=== PATIENT | male | born 1965 | race Caucasian/White ===

== ENCOUNTER 2019-02-28 18:29 | Emergency (ER) | payer OTHER, SELFPAY ==
[2019-02-28 18:49] VITALS: BP 142/105; PULSE 79; RESP 18; TEMP 37.2; O2SAT 99; BMI 25.7
--- NOTE | 2019-02-28 18:50 | ED.NEUROSD ---
HPI - Neuro Symptoms/Deficit General Chief Complaint: Neuro Symptoms/Deficit Stated Complaint: TINGLING THROUGHOUT BODY/NAUSEA/DIZZINESS Time Seen by Provider: 02/28/19 18:49 Source: patient Mode of arrival: ambulatory Limitations: no limitations History of Present Illness HPI Narrative: Patient is a 53-year-old male here for evaluation of an episode that he had approximately 6 hours prior to arrival here in the emergency department. He states that he had a sudden onset of tingling on the top of his head. He states that it very shortly moved down both sides of his body to include his tire face. He denies any chest pain or palpitations the time. No change in vision. He stated that he did have an episode of ?dizziness? that he described as an unsteadiness not as a vertigo sensation. He had some nausea but did not pass out. Did not notice any weakness or speaking issues. He was able to ambulate. He states that the entire episode lasted less than an hour and most likely lasted less than 10 minutes. Stated that his symptoms completely resolved. He does have residual paresthesias in his right upper extremity which he states are not new however more ?intense? now than what they have been in the past. Has never had any symptoms like this in the past. He states that 3 days ago he was at the dentist office and he had ?significantly elevated ?blood pressure. He is not currently on any blood pressure medications. [place]. I also evaluated him for stroke and told him that he was not having a stroke. They advised him to come to the emergency department for further evaluation Related Data Home Medications Medication Instructions Recorded Confirmed meloxicam 15 mg PO DAILY 02/28/19 02/28/19 Previous Rx's Medication Instructions Recorded lisinopril 20 mg PO DAILY #30 tab 02/28/19 Allergies Allergy/AdvReac Type Severity Reaction Status Date / Time No Known Drug Allergies Allergy Verified 02/28/19 18:54 Review of Systems Constitutional Denies fever(s) and Denies headache(s) Eyes Denies change in vision and Denies diplopia ENT Ears, Nose, Mouth, and Throat: Denies vertigo, Reports dizziness, Denies facial pain, Denies headache(s), Reports disequilibrium and Denies sore throat Cardiovascular Denies chest pain, Denies edema, Denies palpitations and Denies dyspnea Respiratory Denies dyspnea Gastrointestinal Gastrointestinal: Denies abdominal pain, Reports nausea and Denies vomiting Genitourinary Denies dysuria and Denies flank pain Musculoskeletal Denies myalgias, Denies arthralgias, Denies muscle weakness, Denies numbness and Reports tingling Integumentary/Breasts Denies rash Neurologic Denies vertigo, Reports dizziness, Denies headache(s), Denies numbness, Reports tingling and Reports disequilibrium Endocrine Denies palpitations Hematologic/Lymphatic Denies easy bleeding and Denies easy bruising [facility] Medical History Melanoma (Acute) Neuropathy (Acute) Social History Smoking Status: Never smoker Social History Smoking Status: Never smoker Exam Initial Vital Signs Initial Vital Signs: Vital Signs Temperature 98.9 F 02/28/19 18:49 Pulse Rate 79 02/28/19 18:49 Respiratory Rate 18 02/28/19 18:49 Blood Pressure 142/105 H 02/28/19 18:49 Pulse Oximetry 99 02/28/19 18:49 Const General: cooperative, healthy appearing, well developed, well groomed and No acute distress Orientation: alert, awake and oriented x3 HENMT Head: normal to inspection and normocephalic Nose: external nose normal Face and sinus: normal facial exam Mouth: oral mucosae normal Eyes Pupils: PERRL EOM: EOM intact bilaterally Resp Effort & Inspection: normal respiratory effort Auscultation: clear to auscultation bilaterally Cardio Rate: regular rate Rhythm: regular rhythm Pulses: radial pulses present GI Inspection: non-distended Palpation: soft and No tender Skin Lesions: no lesions Rashes: no rashes Neuro General: alert, awake and oriented x3 Cranial Nerves: CN's II-XI intact bilaterally Cognition: normal cognition Speech: speech normal Motor: muscle tone normal throughout Sensory Exam: no sensory deficits noted Coordination: [id number] test normal Extrem General: normal to inspection and capillary refill normal Psych Appearance: grossly normal and well kempt Scores ABCD2 Age >= 60 years: no Initial BP. Either SBP >= 140 or DBP >= 90.: yes Clinical features of the TIA: other symptoms Duration of symptoms: 10-59 minutes History of diabetes: no ABCD2 Score: 2 GCS [place] coma scale eye opening: Spontaneous [place] coma scale verbal response: Orientated Leland coma scale motor response: Obey commands [place] coma scale total score: 15 NIH Stroke Scale Level of Conciousness: Alert, keenly responsive Ask month/age: Answers both questions correctly. Open/close eyes, close hand: Performs both tasks correctly Best gaze horizontal: Normal Visual kerr: No visual loss Facial palsy: Normal symetrical movement Left arm drift: No drift for full 10 sec Right arm drift: No drift for full 10 sec Left leg drift: No drift for full 10 sec Right leg drift: No drift for full 10 sec Limb ataxia: Absent Sensory on face/arms/legs: Normal, no sensory loss Best language: No aphasia, normal Dysarthria: Normal Extinction or inattention: No abnormality Total NIH Stroke scale score: 0 Course Orders Ordered: ED Orders 02/28/19 19:05 CT head/brain wo con Stat 02/28/19 19:30 Complete Blood Count AUTO DIFF Stat Comprehensive Metabolic Panel Stat Lipase Stat Vital Signs - 8 hr 02/28/19 18:49 02/28/19 19:35 Temperature 98.9 F Pulse Rate 79 68 Respiratory Rate 18 13 Blood Pressure 142/105 H Blood Pressure [Left Arm] 141/86 H Pulse Oximetry 99 100 MDM - Neuro Symptoms/Deficit Lab Data Attestation: I reviewed the patient's lab results. Result diagrams: 02/28/19 19:30 02/28/19 19:30 Lab Results 02/28/19 02/28/19 02/28/19 Range/Units 19:30 19:30 19:30 WBC 5.5 (4.5-11.0) X10^3/uL RBC 5.41 (4.5-5.9) X10^6/uL Hgb 15.7 (13.5-17.5) g/dL Hct 46.2 (41-53) % MCV 85.4 (80-100) fL MCH 29.0 (26-34) PG MCHC 34.0 (30-36) % RDW 12.9 (11.6-14.8) % Plt Count 231 (150-400) X10^3/uL Neut % (Auto) 60.4 (50-75) % Lymph % (Auto) 26.2 (25-40) % Wetzel % (Auto) 10.8 (3-14) % Eos % (Auto) 2.2 (2-4) % Baso % (Auto) 0.4 (0-2) % Neut # (Auto) 3300 (8290-2944) /uL Lymph # (Auto) 1400 (7451-4737) /uL Wetzel # (Auto) 600 (0-900) /uL Eos # (Auto) 100 (0-450) /uL Baso # (Auto) 0 (0-100) /uL Sodium 140 (137-145) mmol/L Potassium 4.2 (3.4-5.1) mmol/L Chloride 102 (98-107) mmol/L Carbon Dioxide 27 (22-32) mmol/L BUN 15 (9-20) mg/dL Creatinine 1.00 (0.66-1.25) mg/dL Estimated GFR > 60.0 (>60) mL/min BUN/Creatinine Ratio 15.0 (6-22) Glucose 98 (70-100) mg/dL Calcium 9.7 (8.4-10.2) mg/dL Total Bilirubin 0.9 (0.2-1.3) mg/dL AST 50 (17-59) IU/L ALT 53 (21-72) IU/L Alkaline Phosphatase 115 (38-126) U/L Total Protein 8.2 (6.3-8.2) g/dL Albumin 4.8 (3.5-5.0) g/dL Globulin 3.4 (1.7-4.1) g/dL Albumin/Globulin Ratio 1.4 (1.0-2.8) Lipase 56 (23-300) U/L Imaging Data CT scan - head: Radiologist's impression: [address] [address] [address] Scan Report Signed Patient: Nick Monk TMR#: [id number] : 1965Acct:[id number] Age/Sex: 53 / MDate of Service: 02/28/19 Loc: ED Accession Number: [id number] Procedure: CT head/brain wo con Ordering Provider: Chase Abdi D.O. PROCEDURE: CT HEAD/BRAIN WO CON INDICATIONS: Right-sided facial tingling TECHNIQUE: Noncontrast 4.5 mm thick angled axial sections acquired from the foramen magnum to the vertex, with coronal and sagittal reformats. For radiation dose reduction, the following was used: automated exposure control, adjustment of mA and/or kV according to patient size. COMPARISON: None. FINDINGS: Image quality: Excellent. CSF spaces: Basal cisterns are patent. No extra-axial fluid collections. Ventricles are normal in size and shape. Brain: No intracranial hemorrhage, mass, or mass effect. Perez-white matter interface is preserved. Skull and face: Calvarium and visualized facial bones are intact, without suspicious lesions. Sinuses: Visualized sinuses and mastoids are clear. IMPRESSION: 1. No acute intracranial abnormality. Dictated by: De Gan M.D. on 02/28/2019 at 19:59 Approved by: De Gan M.D. on 02/28/2019 at 20:00 ECG Data Attestation: I personally reviewed and interpreted this ECG as follows: Prior ECG tracings: not available for review Interpretation: Sinus rhythm Normal axis Normal QRS Normal QTC Q-waves lead [address] T wave changes Twelve lead EKG performed by the EMS unchanged from EKG here in the ER MDM Narrative Medical decision making narrative: Head CT was negative, labs unremarkable. NIH score 0. Low suspicion for CVA. Also have low suspicion for TIA given his symptoms. I suspect paresthesias. We had a long discussion regarding his blood pressure. Will send home with a prescription for lisinopril and he was instructed to take his blood pressure at home over the next week and if his blood pressures are greater than 140/90 start taking this medication and call his primary doctor. He was given strict return precautions. He expressed understanding and agreement with plan. Discharge Plan Departure Patient Disposition: Home Clinical Impression: Paresthesias Hypertension Qualifiers: Hypertension type: unspecified Qualified Code(s): I10 - Essential (primary) hypertension Instructions: Essential Hypertension Activity Restrictions/Additional Instructions: Recommend that you contact your primary care doctor for follow-up. Take your blood pressure at home over the next week like we discussed. If your blood pressure is greater than 140/90 the majority of the time start taking the medication as directed. Return to the emergency department for any new or worsening symptoms Prescriptions: New lisinopril 20 mg tablet 20 mg PO DAILY Qty: 30 RF: 0 No Action meloxicam 15 mg Tablet 15 mg PO DAILY RF: 0 Referrals: Js Abdi MD [Primary Care Provider] -
--- NOTE | 2019-02-28 19:05 | DI.CT.S_ITS ---
PROCEDURE: CT HEAD/BRAIN WO CON INDICATIONS: Right-sided facial tingling TECHNIQUE: Noncontrast 4.5 mm thick angled axial sections acquired from the foramen magnum to the vertex, with coronal and sagittal reformats. For radiation dose reduction, the following was used: automated exposure control, adjustment of mA and/or kV according to patient size. COMPARISON: None. FINDINGS: Image quality: Excellent. CSF spaces: Basal cisterns are patent. No extra-axial fluid collections. Ventricles are normal in size and shape. Brain: No intracranial hemorrhage, mass, or mass effect. Perez-white matter interface is preserved. Skull and face: Calvarium and visualized facial bones are intact, without suspicious lesions. Sinuses: Visualized sinuses and mastoids are clear. IMPRESSION: 1. No acute intracranial abnormality. Dictated by: De Gan M.D. on 02/28/2019 at 19:59 Approved by: De Gan M.D. on 02/28/2019 at 20:00
[2019-02-28 19:35] VITALS: BP 141/86; PULSE 68; RESP 13; O2SAT 100
[2019-02-28 19:53] LABS: Add Manual Diff / Slide Review NO; Basophils Absolute Auto 0 /uL (0-100); Basophils Percent Auto 0.4 % (0-2); Eosinophils Absolute Auto 100 /uL (0-450); Eosinophils Percent Auto 2.2 % (2-4); Hematocrit 46.2 % (41-53); Hemoglobin 15.7 g/dL (13.5-17.5); Lymphocytes Absolute Auto 1400 /uL (1100-4500); Lymphocytes Percent Auto 26.2 % (25-40); Mean Corpuscular Volume 85.4 fL (80-100); Monocytes Absolute Auto 600 /uL (0-900); Monocytes Percent Auto 10.8 % (3-14); Neutrophils Absolute Auto 3300 /uL (1500-7000); Neutrophils Percent Auto 60.4 % (50-75); Platelet Count 231 X10^3/uL (150-400); Red Blood Cell Count 5.41 X10^6/uL (4.5-5.9); Red Cell Distribution Width 12.9 % (11.6-14.8); White Blood Cell Count 5.5 X10^3/uL (4.5-11.0)
[2019-02-28 20:04] LABS: Alanine Aminotransferase 53 IU/L (21-72); Albumin 4.8 g/dL (3.5-5.0); Albumin Globulin Ratio 1.4 (1.0-2.8); Alkaline Phosphatase 115 U/L (38-126); Aspartate Aminotransferase 50 IU/L (17-59); Bilirubin Total 0.9 mg/dL (0.2-1.3); Blood Urea Nitrogen 15 mg/dL (9-20); Calcium 9.7 mg/dL (8.4-10.2); Carbon Dioxide 27 mmol/L (22-32); Chloride 102 mmol/L (98-107); Estimated Glomerular Filt Rate > 60.0 mL/min (>60); Globulin 3.4 g/dL (1.7-4.1); Glucose 98 mg/dL (70-100); HEMOLYSIS 31 (0-50); Potassium 4.2 mmol/L (3.4-5.1); Sodium 140 mmol/L (137-145); Total Protein 8.2 g/dL (6.3-8.2)
[2019-02-28 20:05] LABS: Lipase 56 U/L (23-300)
[2019-02-28 20:51] VITALS: BP 143/95; PULSE 72; RESP 12; TEMP 36.8; O2SAT 100
== END 2019-02-28 20:54 | disposition home or self-care (01) ==
PROVIDERS: Emergency Provider Emergency Medicine; PCP Student in an Organized Health Care Education/Training Program
DX: R20.2 Paresthesia of skin (principal); I10 Essential (primary) hypertension; R11.0 Nausea; R42 Dizziness and giddiness
CPT/HCPCS: 36591; 70450; 80053; 83690; 85025; 93005; 99282; 99285; 99291